=== PATIENT | female | born 1960 | race Caucasian/White ===

== ENCOUNTER 2020-05-09 06:00 | Outpatient (RCR) | payer MEDICAID, SELFPAY | END 2020-05-29 23:59 | disposition home or self-care (01) | LOC: GPT 06:00 | PROVIDERS: PCP Nurse Practitioner; Referring Provider Neurological Surgery; Visit Provider Neurological Surgery | DX: M54.42 Lumbago with sciatica, left side (principal); G89.29 Other chronic pain; M47.896 Other spondylosis, lumbar region | CPT/HCPCS: 97032; 97110; 97140; 97161; 97530; G0283 ==

== ENCOUNTER 2020-05-30 06:00 | Outpatient (RCR) | payer MEDICAID, SELFPAY | END 2020-06-29 23:59 | disposition home or self-care (01) | LOC: GPT 06:00 | PROVIDERS: PCP Nurse Practitioner; Referring Provider Neurological Surgery; Visit Provider Neurological Surgery | DX: M51.36 Other intervertebral disc degeneration, lumbar region (principal); M54.42 Lumbago with sciatica, left side; G89.29 Other chronic pain | CPT/HCPCS: 97032; 97110; 97140; 97530; G0283 ==

== ENCOUNTER → 2021-07-29 13:18 | Outpatient (BNVA) | payer MEDICAID, SELFPAY | PROVIDERS: PCP Nurse Practitioner; Visit Provider Internal Medicine | DX: M05.9 Rheumatoid arthritis with rheumatoid factor, unspecified (principal); Z11.59 Encounter for screening for other viral diseases; Z11.1 Encounter for screening for respiratory tuberculosis; F17.210 Nicotine dependence, cigarettes, uncomplicated | CPT/HCPCS: 99204 ==

== ENCOUNTER 2021-07-29 15:06 | Outpatient (CLI) | payer MEDICAID, SELFPAY ==
--- NOTE | 2021-07-29 15:49 | XR_ITS ---
WS: [email or web address] Lateral views of cervical spine in the flexion, extension and neutral positions. 07/29/2021 Clinical Data: M05.9 - Rheumatoid arthritis with rheumatoid factor, unsp... Comparison: Lateral cervical spine, 12/07/2018. Findings: No compression fractures are seen. There is a 0.2 cm subluxation of C4 on C5. Degenerative disc narro wing at C4-C5 and C5-C6 with anterior osteoarthritic change is present. On extension there is reducti on of the C4-C5 subluxation. No limitation of motion is noted. There is facet joint arthritis from C3 -C4 through C7-T1. XR/XR cervical spine fl/ex [id number] Impression: 1. Subluxation of C4-C5 of 0.2 cm which reduces on extension. 2. Degenerative disc narrowing at C4-C5 and C5-C6 with anterior osteoarthritis. 3. Facet joint arthritis from C3-C4 through C7-T1.
--- NOTE | 2021-07-29 15:49 | XR_ITS ---
WS: [email or web address] Right hand, 2 views, 07/29/2021 Clinical Data: M05.9 - Rheumatoid arthritis with rheumatoid factor, unsp... Comparison: None. Findings: No fractures or dislocations are seen. The soft tissues are unremarkable. There is osteoa rthritic change of the right first IP joint. There is a small calcification adjacent to the right sec ond finger DIP joint. No periarticular demineralization is noted. There is osteoarthritic change of t he articulation between the trapezium and trapezoid and the scaphoid. XR/XR hand RT 2V [id number] Impression: Osteoarthritis at scattered joints.
--- NOTE | 2021-07-29 15:49 | XR_ITS ---
WS: [email or web address] Right shoulder, 2 views, 07/29/2021 Clinical Data: M05.9 - Rheumatoid arthritis with rheumatoid factor, unsp... Comparison: None. Findings: No fractures or dislocations are seen. The AC joint is normal. The adjacent right clavicle, right sca pula and ribs are normal. The soft tissues are unremarkable. XR/XR shoulder RT min 2V* [id number] Impression: Negative right shoulder.
--- NOTE | 2021-07-29 15:49 | XR_ITS ---
WS: [email or web address] Left shoulder, 2 views, 07/29/2021 Clinical Data: M06.9 - Rheumatoid arthritis, unspecified Comparison: None. Findings: No fractures or dislocations are seen. The AC joint is normal. The adjacent left clavicle, left scapu la and ribs are normal. The soft tissues are unremarkable. XR/XR shoulder LT min 2V* [id number] Impression: Negative left shoulder.
--- NOTE | 2021-07-29 15:49 | XR_ITS ---
WS: [email or web address] Lumbar spine, 3 views, 07/29/2021 Clinical Data: M05.9 - Rheumatoid arthritis with rheumatoid factor, unsp... Comparison: Lumbar spine, 12/07/2018. Findings: There is a dextroscoliosis of the lumbar spine. There is degenerative disc narrowing at all levels. T here is osteoarthritic spurring of all lumbar vertebral bodies. No compression fractures are seen. Th ere is a retrolisthesis of 0.5 cm at L3-L4. There is facet joint arthritis at L4-L5 and L5-S1. The transverse processes and SI joints are intact. There is a left hip arthroplasty. XR/XR lumbar spine 2-3V* [id number] Impression: 1. Dextroscoliosis with multilevel osteoarthritis. 2. Multilevel degenerative disc narrowing with facet joint arthritis at L4-L5 a nd L5-S1.
--- NOTE | 2021-07-29 15:49 | XR_ITS ---
WS: [email or web address] Left hand, 2 views, 07/29/2021 Clinical Data: M05.9 - Rheumatoid arthritis with rheumatoid factor, unsp... Comparison: None. Findings: No fractures or dislocations are seen. The soft tissues are unremarkable. The joint spaces are normal There is osteoarthritis of the left first IP joint. There is a small calcification adjacent to the ra dial side of the left third finger PIP joint and left second finger DIP joint.. There is minimal oste oarthritis at the base of the left first metacarpal. No periarticular demineralization is seen. XR/XR hand LT 2V [id number] Impression: Scattered osteoarthritis.
[2021-07-29 16:05] LABS: Basophils % 0.5 %; Eosinophils # 0.3 10^3/uL (0.0-0.8); Eosinophils % 4.5 %; Hematocrit 41.5 % (37.0-47.0); Hemoglobin 13.4 g/dL (11.5-15.3); Lymphocytes % 26.4 %; Mean Corpuscular HGB Conc 32.3 g/dL (30.0-36.0); Mean Platelet Volume 9.3 fL (7.4-10.4); Monocytes # 0.7 10^3/uL (0.2-0.9); Monocytes % 8.8 %; Neutrophils # 4.55 10^3/uL (1.8-7.7); Neutrophils % 59.7 %; Nucleated Red Blood Cells % 0 %; Platelet Count 320 10^3/cmm (130-400); Red Blood Count 4.19 10^6/uL (4.1-5.3); Red Cell Distribution Width 13.4 % (12.1-15.1); White Blood Count 7.6 10^3/uL (4.0-10.0)
[2021-07-29 22:14] LABS: Hepatitis B Core AB, Total Non-Reactive (Nonreactive); Hepatitis B Surface Antigen Non-Reactive (Nonreactive); Hepatitis C Virus Antibody Reactive (Nonreactive)
[2021-07-31 20:58] LABS: HEP C RNA Viral Load Quant 5.85 Log IU/mL (NOT DETECTED); HEP C RNA Viral Load Quant 701000 IU/mL (NOT DETECTED)
[2021-08-01 13:18] LABS: Quantiferon Mitogen >10.00 IU/mL; Quantiferon Nil 0.02 IU/mL; Quantiferon Plus TB2 <0.00 IU/mL; Quantiferon TB Gold NEGATIVE (NEGATIVE)
== END 2021-07-29 15:07 | disposition home or self-care (01) ==
LOC: LAB 15:12
PROVIDERS: PCP Nurse Practitioner; Visit Provider Internal Medicine
DX: M05.9 Rheumatoid arthritis with rheumatoid factor, unspecified (principal); M06.9 Rheumatoid arthritis, unspecified; S13.150A Subluxation of C4/C5 cervical vertebrae, initial encounter; M47.812 Spondylosis without myelopathy or radiculopathy, cervical region; M47.813 Spondylosis without myelopathy or radiculopathy, cervicothoracic region; M41.86 Other forms of scoliosis, lumbar region; M47.816 Spondylosis without myelopathy or radiculopathy, lumbar region; M19.042 Primary osteoarthritis, left hand; M19.041 Primary osteoarthritis, right hand; X58.XXXA Exposure to other specified factors, initial encounter
CPT/HCPCS: 72040; 72100; 73030; 73120; 85025; 86480; 86704; 86803; 87340; 87522

== ENCOUNTER → 2021-08-06 14:55 | Outpatient (BNVA) | payer MEDICAID, SELFPAY | PROVIDERS: PCP Nurse Practitioner; Visit Provider Internal Medicine | DX: M05.9 Rheumatoid arthritis with rheumatoid factor, unspecified (principal); B19.20 Unspecified viral hepatitis C without hepatic coma; M54.2 Cervicalgia; Z79.899 Other long term (current) drug therapy; F17.210 Nicotine dependence, cigarettes, uncomplicated | CPT/HCPCS: 99214 ==

== ENCOUNTER → 2021-11-26 13:20 | Outpatient (BNVA) | payer MEDICAID, SELFPAY | PROVIDERS: PCP Family Medicine; Visit Provider Internal Medicine | DX: M05.9 Rheumatoid arthritis with rheumatoid factor, unspecified (principal); M54.2 Cervicalgia; B19.20 Unspecified viral hepatitis C without hepatic coma | CPT/HCPCS: 99214 ==

== ENCOUNTER 2023-11-27 12:30 | Emergency (ER) | payer MEDICARE, SELFPAY ==
[2023-11-27 12:33] VITALS: BP 131/69; PULSE 88; RESP 16; TEMP 36.3; O2SAT 95
--- NOTE | 2023-11-27 12:54 | CTR_ITS ---
PROCEDURE INFORMATION: Exam: CT Head Without Contrast Exam date and time: 11/27/2023 1:06 PM Age: 63 years old Clinical indication: Injury or trauma; Fall; Blunt trauma (contusions or hematomas); Additional info: Fall, head injury TECHNIQUE: Imaging protocol: Computed tomography of the head without contrast. Radiation optimization: All CT scans at this facility use at least one of these dose optimization techniques: automated exposure control; mA and/or kV adjustment per patient size (includes targeted exams where dose is matched to clinical indication); or iterative reconstruction. COMPARISON: MR cervical spin wo con* [id number] 12/19/2018 3:32 PM RADIATION DOSE METRICS: Total DLP (mGy-cm): 1048.78 FINDINGS: Brain: No intracranial hemorrhage. There is global parenchymal volume loss. Periventricular white matter hypoattenuation is nonspecific but most likely due to small vessel disease. No evidence of acute territorial infarct or cerebral edema. No mass effect or midline shift. Cerebral ventricles: Prominent ventricles likely secondary to volume loss. Paranasal sinuses: Visualized sinuses are unremarkable. No fluid levels. Mastoid air cells: Visualized mastoid air cells are well aerated. Bones: Unremarkable. No acute fracture. Soft tissues: Unremarkable. CT/CT head wo con* [id number] IMPRESSION: No acute intracranial findings.
--- NOTE | 2023-11-27 12:54 | XRR_ITS ---
PROCEDURE INFORMATION: Exam: XR Chest Exam date and time: 11/27/2023 1:09 PM Age: 63 years old Clinical indication: Injury or trauma; Fall; Blunt trauma (contusions or hematomas); Additional info: Weakness TECHNIQUE: Imaging protocol: Radiologic exam of the chest. Views: 1 view. COMPARISON: CR XR cervical spine fl/ex [id number] 07/29/2021 4:03 PM FINDINGS: Lungs: Unremarkable. No consolidation. Pleural spaces: Unremarkable. No pleural effusion. No pneumothorax. Heart/Mediastinum: There is calcified plaque involving the aorta. No cardiomegaly. Bones/joints: Unremarkable. XR/XR chest 1V portable [id number] IMPRESSION: No acute findings.
[2023-11-27 12:56] VITALS: BP 152/83; PULSE 84; RESP 16; O2SAT 99
--- NOTE | 2023-11-27 12:57 | W.ED.WEAKNES ---
HPI - Weakness General: Chief complaint: Weakness Stated complaint: dizziness/confusion Time Seen by Provider: 11/27/23 12:48 History of Present Illness: 63-year-old female with a history of hypertension and rheumatoid arthritis who presents to the emergency room with dizziness, gait issues, falls, generalized weakness and decreased appetite over the last few days. She said this actually all started probably over a few weeks ago but has become much worse over the last 3 days. She has had 3 falls. She is hit her head. No focal motor deficits. She says she has trouble driving and her balance is off. She has complained of some dysuria. No chest pain. No abdominal pain. No vomiting. No lower extremity swelling. Review of Systems Narrative: Constitutional symptoms: Negative except as documented in HPI. Skin symptoms: Negative except as documented in HPI. Eye symptoms: Negative except as documented in HPI. ENMT symptoms: Negative except as documented in HPI. Respiratory symptoms: Negative except as documented in HPI. Cardiovascular symptoms: Negative except as documented in HPI. Gastrointestinal symptoms: Negative except as documented in HPI. Genitourinary symptoms: Negative except as documented in HPI. Musculoskeletal symptoms: Negative except as documented in HPI. Neurologic symptoms: Negative except as documented in HPI. Psychiatric symptoms: Negative except as documented in HPI. Endocrine symptoms: Negative except as documented in HPI. [facility] ED PFSH: Medical History (Updated 11/27/23 @ 14:36 by Missy Hernandez MD) Hepatitis C Family History Other Cancer Diabetes Heart attack Hyperlipidemia Hypertension Rheumatoid arthritis Stroke Denies family history of Lupus Chronic kidney disease (CKD) Social History Smoking and tobacco/nicotine status: current every day tobacco/nicotine user cigarettes Packs smoked per day: 1 Alcohol intake: never Physical Exam Narrative: EXAM NARRATIVE: General: Alert, no acute distress. Skin: Warm, dry. Head: Normocephalic, atraumatic. Neck: Supple, trachea midline. Eye: Extraocular movements are intact. Ears, nose, mouth and throat: dry oral mucosa Cardiovascular: Regular, Normal peripheral perfusion. Respiratory: Lungs are clear to auscultation, respirations are non-labored, breath sounds are equal, Symmetrical chest wall expansion. Gastrointestinal: Soft, Nontender, Non distended Musculoskeletal: Normal ROM, no deformity. Neurological: Alert and oriented, No focal neurological deficit observed. Psychiatric: Cooperative, appropriate mood & affect. Course Vital Signs: Vital signs: Vital Signs Temperature 97.4 F L 11/27/23 12:33 Pulse Rate 84 11/27/23 12:56 Respiratory Rate 16 11/27/23 12:56 Blood Pressure 152/83 11/27/23 12:56 Pulse Oximetry 99 11/27/23 12:56 Oxygen Delivery Me thod Room Air 11/27/23 12:56 MDM - Weakness Medical Decision Making Medical decision making: Differential diagnosis for patient presenting with generalized weakness including but not limited to and based on the above HPI, review of systems and physical exam: Sepsis. Dehydration. Renal failure. Electrolyte abnormalities. Anemia. Congestive heart failure. Hypotension. Coronary syndrome. Hepatitis. Cirrhosis. Infections such as pneumonia, urinary tract infection, [place] illness, Cellulitis, Viral infections including influenza and Covid-19. Workup: labwork and lab/exam driven imaging ordered to evaluate, rule in and rule out above pathologies. EKG: Time 1338.rate 78. Normal sinus rhythm, No ST-T changes, no ectopy, normal TX & QRS intervals, This was reviewed and interpreted by myself the ER physician at 1342 Chest x-ray: No acute process. No infiltrate. No pneumothorax. This was reviewed and interpreted by myself the ER physician. CT head: No acute intracranial process. no intracranial hemorrhage, no evidence of infarct. no evidence of acute fracture.This was reviewed and interpreted by myself the ER physician. Lab Review: Laboratory results were reviewed and interpreted by myself the emergency room physician. No leukocytosis. No anemia. No renal failure. She does have a urinary tract infection. I believe this is what is causing her symptoms today along with some mild dehydration. I reviewed the patient's medical record. Reexamination: Patient appears a bit more alert after having some fluids and some antibiotics. Still a little bit confused at times. I spoke with daughter and they are going to wait for her to travel until she gets better if she does not get better then come back to the emergency room or go to urgent care. No increased work of breathing. No focal motor deficits. Assessment and plan: Urinary tract infection Dehydration Metabolic encephalopathy -IV normal saline bolus and IV Rocephin in the emergency room - Discharged home - Discussed findings and plan with patient. Answered any questions. - All laboratory values were reviewed and interpreted personally by myself, the ER physician - All imaging was reviewed and interpreted personally by myself, the ER physician. - Evaluation and treatment of this problem were appropriate in the emergency setting Lab Data 11/27/23 13:38 11/27/23 13:[address] 11/27/23 12:54 IMPRESSION: No acute intracranial findings. Laboratory Results WBC 7.92 10^3/uL (3.29-11.43) 11/27/23 13:38 RBC 4.45 10^6/uL (3.85-5.65) 11/27/23 13:38 Hgb 15.80 g/dL (11.27-16.99) 11/27/23 13:38 Hct 45.4 % (36-47) 11/27/23 13:38 MCV 102.0 fl (85-98) H 11/27/23 13:38 MCH 35.5 pg (27-33) H 11/27/23 13:38 MCHC 34.8 g/dL (30-55) 11/27/23 13:38 RDW 12.6 % (12.1-15.1) 11/27/23 13:38 Plt Count 312 10^3/cmm (157-399) 11/27/23 13:38 MPV 9.1 fL (7.4-10.4) 11/27/23 13:38 Neut % (Auto) 67.6 % 11/27/23 13:38 Lymph % (Auto) 20.3 % 11/27/23 13:38 [place] % (Auto) 10.1 % 11/27/23 13:38 Eos % (Auto) 0.9 % 11/27/23 13:38 Baso % (Auto) 0.5 % 11/27/23 13:38 Neut # (Auto) 5.35 10^3/uL (1.8-7.7) 11/27/23 13:38 Lymph # (Auto) 1.6 10^3/uL (0.8-4.8) 11/27/23 13:38 [place] # (Auto) 0.8 10^3/uL (0.2-0.9) 11/27/23 13:38 Eos # (Auto) 0.1 10^3/uL (0.0-0.8) 11/27/23 13:38 Baso # (Auto) 0.0 10^3/uL (0.0-0.1) 11/27/23 13:38 Nucleated RBC % (auto) 0 % 11/27/23 13:38 Nucleated RBCs # 0.0 /100WBC 11/27/23 13:38 Sodium 135 mmol/L (136-145) L 11/27/23 13:38 Potassium 3.0 mmol/L (3.5-5.1) L 11/27/23 13:38 Chloride 94 mmol/L (98-107) L 11/27/23 13:38 Carbon Dioxide 24 mmol/L (22-29) 11/27/23 13:38 Anion Gap 20.0 (5-19) H 11/27/23 13:38 BUN 8 mg/dL (8-23) 11/27/23 13:38 Creatinine 0.8 mg/dL (0.5-0.9) 11/27/23 13:38 GFR Calculation 72.0 mL/min (90-130) L 11/27/23 13:38 Glucose 108 mg/dL (65-115) 11/27/23 13:38 Calculated Osmolality 279 mOsm/kg (285-295) L 11/27/23 13:38 Lactic Acid 1.9 mmol/L (0.5-2.2) 11/27/23 13:42 Calcium 10.0 mg/dL (8.5-10.5) 11/27/23 13:38 Magnesium 1.1 mg/dL (1.7-2.3) L 11/27/23 13:38 Total Bilirubin 0.5 mg/dL (0.15-1.2) 11/27/23 13:38 AST 46 U/L (0-32) H 11/27/23 13:38 ALT 33 U/L (0-33) 11/27/23 13:38 Alkaline Phosphatase 130 U/L (35-105) H 11/27/23 13:38 Ammonia 16 umol/L (11-51) 11/27/23 13:38 Troponin T Baseline 7 ng/L (0-10) 11/27/23 13:42 C-Reactive Protein 3.0 mg/L (0.0-4.9) 11/27/23 13:38 Total Protein 8.3 g/dL (6.6-8.7) 11/27/23 13:38 Albumin 4.7 g/dL (3.5-5.2) 11/27/23 13:38 Globulin 3.6 g/dL (1.3-4.6) 11/27/23 13:38 Lipase 72 U/L (13-60) H 11/27/23 13:38 Urine Color Yellow (Yellow) 11/27/23 13:00 Urine Appearance Clear (CLEAR) 11/27/23 13:00 Urine pH 5 (5-7) 11/27/23 13:00 Ur Specific [place] 1.015 (1.005-1.030) 11/27/23 13:00 Urine Protein Trace (Negative) 11/27/23 13:00 Urine Glucose (UA) Norm (Normal) 11/27/23 13:00 Urine Ketones 1+ (Negative) H 11/27/23 13:00 Urine Blood Neg (Negative) 11/27/23 13:00 Urine Nitrate Negative (Negative) 11/27/23 13:00 Urine Bilirubin 1+ (Negative) H 11/27/23 13:00 Urine Urobilinogen 1 mg/dL (Negative) H 11/27/23 13:00 Ur Leukocyte Esterase 2+ (Negative) H 11/27/23 13:00 Urine RBC None /hpf (0-2) 11/27/23 13:00 Urine WBC 25-40 /hpf (0-5) H 11/27/23 13:00 Ur Squamous Epith Cells 5-10 /hpf (0-5) H 11/27/23 13:00 Amorphous Sediment Not Reportable 11/27/23 13:00 Urine Bacteria 1+ /hpf (NONE) H 11/27/23 13:00 Hyaline Casts 5-10 /lpf H 11/27/23 13:00 Urine Mucus 1+ /hpf 11/27/23 13:00 All radiology interpretation(s) finalized by discharge Discharge Plan Discharge Patient Disposition: Home Clinical Impression: Urinary tract infection, Dehydration, Weakness, Metabolic encephalopathy, Falls Condition: Stable Prescriptions: New cefdinir 300 mg capsule 300 mg PO BID 7 Days Qty: 14 0RF ondansetron 8 mg tablet,disintegrating 8 mg PO .q6 PRN (Reason: nausea and vomiting) Qty: 14 0RF No Action gabapentin 800 mg tablet 800 mg PO TID celecoxib [Celebrex] 400 mg capsule 400 mg PO DAILY Excedrin Extra Strength 250-250-65 mg tablet 2 tab PO TID tizanidine 4 mg capsule 4 mg PO BID PRN meclizine 12.5 mg tablet 12.5 mg PO DAILY PRN magnesium 200 mg tablet 400 mg PO DAILY multivitamin Tablet 1 tab PO DAILY lisinopril-hydrochlorothiazide 20-12.5 mg tablet 1 tab PO DAILY prednisone 5 mg tablet See Rx Instructions PO .COMPLEX Qty: 30 1RF Rx Instructions: 1-2 tabs as needed PO; ondansetron 4 mg tablet,disintegrating 4 mg PO Q6H Qty: 20 0RF hydroxychloroquine 200 mg tablet 200 mg PO BID Qty: 60 3RF Rx Instructions: Take 1 tab daily for 1 week; then 1 tab twice daily. Discharge Orders: Discharge ED (Routine); Ordered 11/27/23 Ordered By: Missy Hernandez Discharge Diet: Usual diet Discharge Activity: Increase activity as tolerated Patient Instructions: Urinary Tract Infection in Older Adults (ED) Activity Restrictions/Additional Instructions: Thank you for choosing [facility] for your healthcare needs today. Please realize this is an emergency room and that we are providing you with a medical screening exam and this may not be complete and all inclusive of all the testing and or work up that you may need to determine your ailment or severity of your illness. You have been screened and evaluated and felt safe for discharge. Health conditions do change or evolve sometimes and as such it is important that you follow up with your Primary Doctor to be re checked, 3-5 days is a general good time frame for follow up. You are always welcome to return to the ED for re assessment if your symptoms are worsening or you have new concerns Coding Level of Care Code ED Fnp for Yina Dyson
[2023-11-27 13:31] LABS: Bacteria Urine 1+ /hpf; Bilirubin Urine 1+ (Negative); Blood Urine Neg (Negative); Glucose Urine UA Norm (Normal); Ketones Urine 1+ (Negative); Leukocyte Esterase Urine 2+ (Negative); Mucus Urine 1+ /hpf; Nitrate Urine Negative (Negative); Protein Urine Trace (Negative); Specific Gravity, Urine 1.015 (1.005-1.030); Urine Appearance Clear (CLEAR); Urine Color Yellow (Yellow); Urobilinogen Urine 1 mg/dL (Negative); WBC Urine 25-40 /hpf (0-5); pH Urine 5 (5-7)
[2023-11-27 13:32] LABS: Add Urine Culture? Yes
--- NOTE | 2023-11-27 13:38 | ECG_ITS ---
[facility] Test Date: 2023-11-27 Pat Name: Jenny Gamez Department: Room: Gender: Female [employer] Supervisor: : 1960 Requested By: Missy Talbot Order Number: [id number] Maddison MD: Leny Benton M.D. Measurements Intervals [place] Rate: 78 P: 40 MT: 160 QRS: -1 QRSD: 85 T: 29 QT: 385 QTc: 440 Interpretive Statements SINUS RHYTHM NONSPECIFIC ST & T-WAVE ABNORMALITY No previous ECG available for comparison Electronically Signed On 11-27-2023 21:03:59 CDT by Leny Benton M.D. [email or web address]
[2023-11-27 13:47] LABS: Basophils % 0.5 %; Eosinophils # 0.1 10^3/uL (0.0-0.8); Eosinophils % 0.9 %; Hematocrit 45.4 % (36-47); Lymphocytes # 1.6 10^3/uL (0.8-4.8); Lymphocytes % 20.3 %; Mean Corpuscular HGB Conc 34.8 g/dL (30-55); Mean Corpuscular Hemoglobin 35.5 pg (27-33); Mean Platelet Volume 9.1 fL (7.4-10.4); Monocytes # 0.8 10^3/uL (0.2-0.9); Monocytes % 10.1 %; Neutrophils # 5.35 10^3/uL (1.8-7.7); Neutrophils % 67.6 %; Nucleated Red Blood Cells % 0 %; Platelet Count 312 10^3/cmm (157-399); Red Blood Count 4.45 10^6/uL (3.85-5.65); Red Cell Distribution Width 12.6 % (12.1-15.1); White Blood Count 7.92 10^3/uL (3.29-11.43)
[2023-11-27] MEDS: cefTRIAXone 1,000 MG in sodium chloride 0.9% (plus) 50 ML 100 MG IV (13:58)
[2023-11-27] MEDS: sodium chloride 0.9% 1,000 ML 999 ML IV (13:59)
[2023-11-27 14:06] LABS: Lactic Sepsis W/Reflex 1.9 mmol/L (0.5-2.2)
[2023-11-27 14:08] LABS: Alanine Aminotransferase 33 U/L (0-33); Albumin Level 4.7 g/dL (3.5-5.2); Alkaline Phosphatase 130 U/L (35-105); Aspartate Amino Transferase 46 U/L (0-32); Blood Urea Nitrogen 8 mg/dL (8-23); Carbon Dioxide 24 mmol/L (22-29); Chloride 94 mmol/L (98-107); Creatinine Clr Calc Pharmacy 71.0277; Globulin 3.6 g/dL (1.3-4.6); Glucose 108 mg/dL (65-115); Lipase 72 U/L (13-60); Magnesium 1.1 mg/dL (1.7-2.3); Osmolality Calculated 279 mOsm/kg (285-295); Sodium 135 mmol/L (136-145); Total Bilirubin 0.5 mg/dL (0.15-1.2); Total Protein 8.3 g/dL (6.6-8.7)
[2023-11-27 14:09] LABS: Troponin(5th) Baseline 7 ng/L (0-10)
[2023-11-27 14:15] LABS: Ammonia 16 umol/L (11-51)
--- NOTE | 2023-11-27 14:43 | ECG_ITS ---
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 Measurements Intervals [place] Rate: 79 P: 36 IA: 157 QRS: 3 QRSD: 93 T: -3 QT: 401 QTc: 461 Interpretive Statements SINUS RHYTHM NONSPECIFIC ST & T-WAVE ABNORMALITY Compared to ECG 11/27/2023 13:38:45 No significant changes Electronically Signed On 11-27-2023 21:12:26 CDT by Leny Benton M.D. [email or web address]
[2023-11-27 14:47] VITALS: BP 167/77; PULSE 81; RESP 17; O2SAT 100
== END 2023-11-27 14:57 | disposition home or self-care (01) ==
PROVIDERS: Emergency Provider Emergency Medicine
DX: N39.0 Urinary tract infection, site not specified (principal); E86.0 Dehydration; R53.1 Weakness; G93.41 Metabolic encephalopathy; F17.210 Nicotine dependence, cigarettes, uncomplicated; Z86.19 Personal history of other infectious and parasitic diseases
CPT/HCPCS: 70450; 71045; 80053; 81001; 82140; 83605; 83690; 83735; 84484; 85025; 86140; 87040; 87086; 93005; 96365; 99285; J0696; J7030